=== PATIENT | female | born 1990 | race Caucasian/White ===

== ENCOUNTER 2017-03-18 19:43 | Emergency (ER) | payer MEDICAID, OTHER ==
--- NOTE | 2017-03-18 20:44 | ED.PDOC ---
History of Present Illness - General Chief Complaint: General Stated Complaint: 6 weeks Time Seen by Provider: 03/18/17 20:32 Source: patient Exam Limitations: no limitations Additional Information: VAGINAL BLEEDING, 2 DAYS, INTERMITTENT. PASSED CLOT 2 DAYS AGO, NO BLEEDING YESTERDAY, SPOTTING TODAY. - History of Present Illness Severity: mild Improving Factors: nothing Worsening Factors: nothing Associated Symptoms: denies symptoms Allergies/Adverse Reactions: Allergies Cephalexin [From Keflex] Allergy (Verified 03/18/17 20:29) Latex Allergy (Verified 03/18/17 20:29) Pineapple Allergy (Verified 03/18/17 20:29) Review of Systems - Review of Systems Constitutional: Denies: chills, fever EENTM: States: no symptoms reported Respiratory: States: no symptoms reported Cardiology: States: no symptoms reported Gastrointestinal/Abdominal: States: nausea. Denies: abdominal pain, vomiting Genitourinary: States: other - NO VAG D/C, + SPOTTING, [id number], 5W2D BY DATES, LMP 02/09. Denies: discharge, dysuria, hematuria Musculoskeletal: States: no symptoms reported Skin: States: no symptoms reported Neurological: States: no symptoms reported Endocrine: States: no symptoms reported Hematologic/Lymphatic: States: no symptoms reported Past Medical History (General) - Patient Medical History Hx Seizures: No Hx Asthma: Yes Hx Pacemaker: No Hx Diabetes: No - Female History Patient : No Family Medical History - Family History Mother Family History: Unknown Physical Exam - Physical Exam General Appearance: Alert, No apparent distress Eye Exam: bilateral normal Ears, Nose, Throat: hearing grossly normal, normal ENT inspection Neck: non-tender, full range of motion, supple Respiratory: lungs clear, normal breath sounds Cardiovascular/Chest: regular rate, rhythm, no murmur Gastrointestinal/Abdominal: normal bowel sounds, non tender, soft, no organomegaly Back Exam: normal inspection, no CVA tenderness Extremity: normal range of motion, non-tender Neurologic: alert, normal mood/affect Skin Exam: normal color, warm/dry Lymphatic: no adenopathy Progress - Progress Progress: 03/18/17 23:14 ADVISED PT SHE NEEDED PELVIC EXAM AND WERE WAITING FOR RH TO COME BACK. PT LEFT AMA. DID NOT HAVE THE OPPORTUNITY TO SPEAK WITH PT PRIOR TO HER LEAVING Departure - Departure Clinical Impression: Vaginal bleeding ICD-10 Supporting Text: DDX, INCOMPLETE VS COMPLETE AB. Time of Disposition: 22:00 Disposition: Left Against Medical Advice Condition: Good Departure Forms: ED Discharge - Pt. Copy, Patient Portal Self Enrollment Referrals: MADELYN MCMILLAN MD/OBGYN [Family Provider] - 1-2 Weeks
[2017-03-18 22:17] VITALS: BP 109/75; TEMP 97.6; O2SAT 98
== END 2017-03-18 22:38 | disposition left against medical advice (07) ==
LOC: ER 19:43
DX: O20.9 Hemorrhage in early pregnancy, unspecified (principal); Z3A.01 Less than 8 weeks gestation of pregnancy

== ENCOUNTER → 2019-03-17 | Outpatient (CLI) | payer BC | LOC: LAB.O 13:29 | PROVIDERS: ATTEND Obstetrics & Gynecology | DX: E03.9 Hypothyroidism, unspecified (principal) ==